=== PATIENT | male | born 1990 | race Caucasian/White ===

== ENCOUNTER 2019-11-27 11:34 | Emergency (ER) | payer OTHER ==
[2019-11-27 11:48] VITALS: BP 128/91; PULSE 57; RESP 18; TEMP 97.9
--- NOTE | 2019-11-27 12:15 | XR ---
EXAMINATION TYPE: XR knee complete RT DATE OF EXAM: 11/27/2019 COMPARISON: None HISTORY: Leg run over by machine TECHNIQUE: Three-view right knee FINDINGS: No acute fractures or dislocations are evident. Joint spaces are preserved. No joint effusi on is evident. Soft tissues are normal. Follow-up exams can be performed 7-10 days from acute trauma for continued pain. IMPRESSION: 1. Normal three-view right knee
--- NOTE | 2019-11-27 12:18 | XR ---
EXAMINATION TYPE: XR ankle complete RT DATE OF EXAM: 11/27/2019 COMPARISON: None HISTORY: Leg run over by machine TECHNIQUE: Three-view right ankle FINDINGS: Ankle mortise is intact. No acute displaced fractures are evident. Some minimal soft tissue swelling may be over the lateral malleolus. There is a tiny ossification lateral to the lateral mall eolus tiny avulsion could be considered IMPRESSION: 1. Tiny ossification lateral to the lateral malleolus could be a small avulsion. No additional areas suspicious for fracture are evident. 2. Follow-up studies can be performed 7-10 days from acute trauma for continued pain
[2019-11-27] MEDS ORDERED: HYDROmorphone 1 MG/ML 1 ML SYRINGE IM STA (12:35)
--- NOTE | 2019-11-27 13:09 | XR ---
EXAMINATION TYPE: XR femur RT DATE OF EXAM: 11/27/2019 COMPARISON: None HISTORY: Pain struck by current work TECHNIQUE: 2 view right femur FINDINGS: Femur appears intact. Femoral head articulates with the acetabulum. Knee joint space is sep arately visualized. IMPRESSION: 1. Normal 2 view right femur
--- NOTE | 2019-11-27 13:19 | ED ---
Lower Extremity Injury HPI - General Chief Complaint: Extremity Injury, Lower Stated Complaint: [facility] - foot/ankle injury Time Seen by Provider: 11/27/19 11:57 Source: patient, RN notes reviewed Mode of arrival: wheelchair Limitations: no limitations - History of Present Illness Initial Comments: 29-year-old male presents emergency Department chief complaint of right leg injury. Patient states he is working outside and was struck by a man left. Patient states that he has right leg pain is diffuse. Patient denies any paresthesias. Patient has small abrasion tetanus up-to-date. Patient offers no complaints. No head injury no loss conscious. - Related Data Previous Rx's Medication Instructions Recorded Ibuprofen [Motrin] 600 mg PO Q8HR PRN #20 tab 11/27/19 Allergies Allergy/AdvReac Type Severity Reaction Status Date / Time No Known Allergies Allergy Verified 11/27/19 11:47 Review of Systems ROS Statement: Those systems with pertinent positive or pertinent negative responses have been documented in the HPI. ROS Other: All systems not noted in ROS Statement are negative. Past Medical History Past Medical History: No Reported History History of Any Multi-Drug Resistant Organisms: None Reported Past Surgical History: Adenoidectomy, Tonsillectomy Past Psychological History: No Psychological Hx Reported Smoking Status: Current every day smoker Past Alcohol Use History: None Reported Past Drug Use History: None Reported General Exam Limitations: no limitations General appearance: alert, in no apparent distress Head exam: Present: atraumatic, normocephalic, normal inspection Eye exam: Present: normal appearance, PERRL, EOMI. Absent: scleral icterus, conjunctival injection, periorbital swelling ENT exam: Present: normal exam, normal oropharynx, mucous membranes moist Neck exam: Present: normal inspection. Absent: tenderness, meningismus, lymphadenopathy Respiratory exam: Present: normal lung sounds bilaterally. Absent: respiratory distress, wheezes, rales, rhonchi, stridor Cardiovascular Exam: Present: regular rate, normal rhythm, normal heart sounds. Absent: systolic murmur, diastolic murmur, rubs, gallop, clicks Extremities exam: Present: other (Right leg there is diffuse tenderness, greatest in the right calf, right lateral malleolar region. There is moderate swelling small abrasion noted patient is neurovascular intact patient does have full range of motion of all joints. Patient does report pain with range of motion.) Neurological exam: Present: alert, oriented X3 Skin exam: Present: warm, dry, intact, normal color. Absent: rash Course Vital Signs 11/27/19 11:42 Temperature 97.9 F Pulse Rate 57 L Respiratory 18 Rate Blood Pressure 128/91 O2 Sat by Pulse 100 Oximetry Procedures - Orthopedic Splinting/Casting Injury #1 Side: right Lower Extremity Injury Location: short leg, ankle Lower Extremity Immobilizer: posterior splint, synthetic pre-padded splint Additional Comments: Neurovascular intact before and after Medical Decision Making - Medical Decision Making 29-year-old male presented for right leg injury x-ray reviewed negative fracture negative proximal tib-fib, distal fibular fracture noted. Patient was splinted and will follow-up with orthopedics. Disposition Clinical Impression: Closed fracture of right distal fibula Disposition: HOME SELF-CARE Condition: Stable Instructions (If sedation given, give patient instructions): Ankle Fracture (ED) Additional Instructions: Please return to the Emergency Department if symptoms worsen or any other concerns. Prescriptions: Ibuprofen [Motrin] 600 mg PO Q8HR PRN #20 tab PRN Reason: Pain Is patient prescribed a controlled substance at d/c from ED?: No Referrals: None,Stated [Primary Care Provider] - 1-2 days Crow Blackmon DO [Doctor of Osteopathic Medicine] - 1-2 days Time of Disposition: 13:19
[2019-11-27] MEDS ORDERED: ACET/COD 300 MG/30 MG STARTER PACK 6 TAB BTL PO STA (13:21)
== END 2019-11-27 13:43 | disposition home or self-care (01) ==
LOC: EC 11:34
DX: S82.831A Other fracture of upper and lower end of right fibula, initial encounter for closed fracture (principal); F17.200 Nicotine dependence, unspecified, uncomplicated; W31.89XA Contact with other specified machinery, initial encounter; Y93.89 Activity, other specified; Y92.69 Other specified industrial and construction area as the place of occurrence of the external cause; Y99.0 Civilian activity done for income or pay
CPT/HCPCS: 73552; 73562; 73610; 99283; 29515; 96372; J1170

== ENCOUNTER → 2019-11-30 | Outpatient (CLI) | payer OTHER ==
--- NOTE | 2019-11-30 10:45 | US ---
EXAMINATION TYPE: US venous doppler duplex LE RT DATE OF EXAM: 11/30/2019 10:19 AM COMPARISON: NONE CLINICAL HISTORY: RLE -Phlebitis and Thrombophlebitis. Trauma to right leg 1 week ago, pain and swell ing SIDE PERFORMED: Right TECHNIQUE: The lower extremity deep venous system is examined utilizing real time linear array sonog wendie with graded compression, doppler sonography and color-flow sonography. VESSELS IMAGED: External Iliac Vein (EIV) Common Femoral Vein Deep Femoral Vein Greater Saphenous Vein * Femoral Vein Popliteal Vein Small Saphenous Vein * Proximal Calf Veins (* superficial vessels) Right Leg: Appears negative for DVT IMPRESSION: No evidence for DVT at this time.
== END | disposition home or self-care (01) ==
LOC: RADUSWWP 09:52
PROVIDERS: ATTEND Orthopaedic Surgery
DX: M79.661 Pain in right lower leg (principal); M25.571 Pain in right ankle and joints of right foot; M25.551 Pain in right hip

== ENCOUNTER → 2020-01-08 | Outpatient (CLI) | payer OTHER ==
--- NOTE | 2020-01-08 11:42 | XR ---
EXAMINATION TYPE: XR skull complete DATE OF EXAM: 01/08/2020 COMPARISON: NONE HISTORY: Rule out foreign body TECHNIQUE: 4 views of the bony calvarium are submitted FINDINGS: The osseous structures are intact. No evidence for fracture or bony lesion. No evidence for radiopaque foreign body. IMPRESSION: No radiopaque foreign body identified.
== END | disposition home or self-care (01) ==
LOC: RADXRMAIN 11:08
PROVIDERS: ATTEND Orthopaedic Surgery
DX: Z18.10 Retained metal fragments, unspecified (principal); Z98.890 Other specified postprocedural states
CPT/HCPCS: 70260

== ENCOUNTER 2021-08-21 08:28 | Emergency (ER) | payer BC ==
[2021-08-21 08:37] VITALS: RESP 20
[2021-08-21] MEDS ORDERED: SODIUM CHLORIDE 0.9% 1,000 ML IV STA (09:22)
--- NOTE | 2021-08-21 09:22 | XR ---
EXAMINATION TYPE: XR chest 2V DATE OF EXAM: 08/21/2021 COMPARISON: None INDICATION: Weakness chemical exposure TECHNIQUE: Frontal and lateral views of the chest are obtained. FINDINGS: The heart size is normal. The pulmonary vasculature is normal. The lungs are clear. IMPRESSION: 1. No acute pulmonary process.
[2021-08-21] MEDS ORDERED: KETOROLAC 15 MG/ML 1 ML VIAL IVP STA (09:24)
--- NOTE | 2021-08-21 09:30 | ED ---
General Adult HPI - General Chief complaint: Weakness Stated complaint: Bodyaches, poisioning, yard spray Time Seen by Provider: 08/21/21 09:15 Source: patient, family (), RN notes reviewed, old records reviewed Mode of arrival: ambulatory Limitations: no limitations - History of Present Illness Initial comments: 31-year-old well appearing male presents to the emergency room ambulatory with complaints of generalized body aches, joint pain, testicular pain, weakness and loss of appetite that started Wednesday. States was using fogging spray in the yard for bugs on Wednesday and is not sure if it is related. He denies any fevers, chest pain or difficulty in breathing. No nausea vomiting or diarrhea. He denies any medical history. No recent sick exposures. -: days(s) (5) Severity scale (1-10): 10 Quality: aching Consistency: constant Improves with: none Worsens with: movement Associated Symptoms: loss of appetite, malaise, weakness, other (Body and joint pain) - Related Data Previous Rx's Medication Instructions Recorded Ibuprofen [Motrin] 600 mg PO Q8HR PRN #20 tab 11/27/19 Allergies Allergy/AdvReac Type Severity Reaction Status Date / Time No Known Allergies Allergy Verified 08/21/21 08:36 Review of Systems ROS Statement: Those systems with pertinent positive or pertinent negative responses have been documented in the HPI. ROS Other: All systems not noted in ROS Statement are negative. Past Medical History Past Medical History: No Reported History History of Any Multi-Drug Resistant Organisms: None Reported Past Surgical History: Adenoidectomy, Ear Surgery, Orthopedic Surgery, Tonsillectomy Past Psychological History: No Psychological Hx Reported Smoking Status: Current every day smoker Past Alcohol Use History: None Reported Past Drug Use History: Marijuana General Exam Limitations: no limitations General appearance: alert, in no apparent distress Head exam: Present: atraumatic, normocephalic, normal inspection Eye exam: Present: normal appearance, PERRL, EOMI. Absent: scleral icterus, conjunctival injection, nystagmus, periorbital swelling, periorbital tenderness ENT exam: Present: normal exam, normal oropharynx, mucous membranes moist Expanded Mouth exam: Present: normal external inspection, tongue normal, tongue elevatio n. Absent: drooling, trismus, muffled voice Throat exam: normal inspection. negative: tonsillar erythema Neck exam: Present: normal inspection, full ROM. Absent: tenderness, meningismus, lymphadenopathy, thyromegaly Respiratory exam: Present: normal lung sounds bilaterally. Absent: respiratory distress, accessory muscle use Cardiovascular Exam: Present: regular rate GI/Abdominal exam: Present: soft. Absent: distended, tenderness exam: Present: vertical testicular lie, circumcision. Absent: testicular tenderness, urethral discharge, scrotal swelling Extremities exam: Present: normal inspection, full ROM, normal capillary refill. Absent: tenderness, pedal edema, joint swelling, calf tenderness Back exam: Present: normal inspection, full ROM. Absent: tenderness, CVA tenderness (R), CVA tenderness (L) Neurological exam: Present: alert, oriented X3, CN II-XII intact, normal gait Psychiatric exam: Present: normal affect, normal mood Skin exam: Present: warm, dry, intact, normal color. Absent: cyanosis, d iaphoretic, petechiae, pallor Course Vital Signs 08/21/21 08/21/21 08:33 12:42 Temperature 98.1 F 97.8 F Pulse Rate 95 75 Respiratory 20 20 Rate Blood Pressure 139/100 122/76 O2 Sat by Pulse 99 96 Oximetry Medical Decision Making - Medical Decision Making Patient presents with multiple complaints of body aches and generalized weakness after spraying the yard bugs on Wednesday. Patient states his symptoms started on Wednesday. He denies any fevers and no sick exposures. Vital signs are stable oxygen saturation is 99% on room air. CBC, electrolytes and urinalysis are unremarkable. Coronavirus test was negative. Chest x-ray shows no acute pulmonary process. On physical exam there is no abnormalities, testicles are unremarkable and nontender to palpation. Lungs sounds are clear to auscultation. No signs of dehydration. Patient was given 1 L of normal saline and 15 mg of Toradol. We did discuss that this is likely a viral illness and may take a couple of days to improve. Patient states that he is feeling better already. He was directed to return to the emergency room with any new or concerning symptoms and follow up with his primary care doctor next week. Case discussed with Dr. Toth. - Lab Data Result diagrams: 08/21/21 09:44 08/21/21 09:44 Lab Results 06/23/22 06/23/22 06/23/22 Range/Units 09:44 09:44 09:44 WBC 8.2 (3.8-10.6) k/uL RBC 5.67 (4.30-5.90) m/uL Hgb 16.5 (13.0-17.5) gm/dL Hct 49.4 (39.0-53.0) % MCV 87.2 (80.0-100.0) fL MCH 29.2 (25.0-35.0) pg MCHC 33.5 (31.0-37.0) g/dL RDW 12.5 (11.5-15.5) % Plt Count 256 (150-450) k/uL MPV 8.0 Neutrophils % 63 % Lymphocytes % 26 % Monocytes % 7 % Eosinophils % 2 % Basophils % 1 % Neutrophils # 5.2 (1.3-7.7) k/uL Lymphocytes # 2.1 (1.0-4.8) k/uL Monocytes # 0.5 (0-1.0) k/uL Eosinophils # 0.1 (0-0.7) k/uL Basophils # 0.1 (0-0.2) k/uL PT 10.2 (9.0-12.0) sec INR 0.9 (<1.2) APTT 27.3 (22.0-30.0) sec Sodium (137-145) mmol/L Potassium (3.5-5.1) mmol/L Chloride (98-107) mmol/L Carbon Dioxide (22-30) mmol/L Anion Gap mmol/L BUN (9-20) mg/dL Creatinine (0.66-1.25) mg/dL Est GFR (CKD-EPI)AfAm (>60 ml/min/1.73 sqM) Est GFR (CKD-EPI)NonAf (>60 ml/min/1.73 sqM) Glucose (74-99) mg/dL Plasma Lactic Acid Fuad (0.7-2.0) mmol/L Calcium (8.4-10.2) mg/dL Phosphorus (2.5-4.5) mg/dL Magnesium (1.6-2.3) mg/dL Total Bilirubin (0.2-1.3) mg/dL AST (17-59) U/L ALT (4-49) U/L Alkaline Phosphatase (38-126) U/L Total Protein (6.3-8.2) g/dL Albumin (3.5-5.0) g/dL Urine Color Yellow Urine Appearance Clear (Clear) Urine pH 5.5 (5.0-8.0) Ur Specific [place] 1.016 (1.001-1.035) Urine Protein Negative (Negative) Urine Glucose (UA) Negative (Negative) Urine Ketones Negative (Negative) Urine Blood Negative (Negative) Urine Nitrite Negative (Negative) Urine Bilirubin Negative (Negative) Urine Urobilinogen <2.0 (<2.0) mg/dL Ur Leukocyte Esterase Negative (Negative) Coronavirus (PCR) (Not Detectd) 08/21/21 08/21/21 08/21/21 Range/Units 09:44 09:44 09:48 WBC (3.8-10.6) k/uL RBC (4.30-5.90) m/uL Hgb (13.0-17.5) gm/dL Hct (39.0-53.0) % MCV (80.0-100.0) fL MCH (25.0-35.0) pg MCHC (31.0-37.0) g/dL RDW (11.5-15.5) % Plt Count (150-450) k/uL MPV Neutrophils % % Lymphocytes % % Monocytes % % Eosinophils % % Basophils % % Neutrophils # (1.3-7.7) k/uL Lymphocytes # (1.0-4.8) k/uL Monocytes # (0-1.0) k/uL Eosinophils # (0-0.7) k/uL Basophils # (0-0.2) k/uL PT (9.0-12.0) sec INR (<1.2) APTT (22.0-30.0) sec Sodium 138 (137-145) mmol/L Potassium 4.6 (3.5-5.1) mmol/L Chloride 105 (98-107) mmol/L Carbon Dioxide 22 (22-30) mmol/L Anion Gap 11 mmol/L BUN 15 (9-20) mg/dL Creatinine 0.85 (0.66-1.25) mg/dL Est GFR (CKD-EPI)AfAm >90 (>60 ml/min/1.73 sqM) Est GFR (CKD-EPI)NonAf >90 (>60 ml/min/1.73 sqM) Glucose 97 (74-99) mg/dL Plasma Lactic Acid Fuad 1.0 (0.7-2.0) mmol/L Calcium 9.1 (8.4-10.2) mg/dL Phosphorus 4.1 (2.5-4.5) mg/dL Magnesium 1.9 (1.6-2.3) mg/dL Total Bilirubin 0.3 (0.2-1.3) mg/dL AST 31 (17-59) U/L ALT 55 H (4-49) U/L Alkaline Phosphatase 79 (38-126) U/L Total Protein 7.4 (6.3-8.2) g/dL Albumin 4.5 (3.5-5.0) g/dL Urine Color Urine Appearance (Clear) Urine pH (5.0-8.0) Ur Specific [place] (1.001-1.035) Urine Protein (Negative) Urine Glucose (UA) (Negative) Urine Ketones (Negative) Urine Blood (Negative) Urine Nitrite (Negative) Urine Bilirubin (Negative) Urine Urobilinogen (<2.0) mg/dL Ur Leukocyte Esterase (Negative) Coronavirus (PCR) Not Detected (Not Detectd) Disposition Clinical Impression: Weakness Disposition: HOME SELF-CARE Condition: Good Instructions (If sedation given, give patient instructions): Weakness (ED) Additional Instructions: Today we completed a workup for body aches and generalized weakness. Sometimes we do not always find a cause for your symptoms in one ER visit. The findings on your exam today including blood work and chest x-ray are reassuring. At this time it is not 100% certain what is causing your symptoms however we feel you can be discharged from the emergency department. It is possible your symptoms may worsen or you may get better. Please follow-up with your primary care doctor next week. Return to the emergency room with any new or concerning symptoms. Increase your fluid intake and take Tylenol and or Motrin as needed for pain. Is patient prescribed a controlled substance at d/c from ED?: No Referrals: None,Stated [Primary Care Provider] - 1-2 days Peg Pink MD [REFERRING] - 1-2 days Time of Disposition: 12:25
[2021-08-21 10:20] LABS: Basophils # (A) 0.1 k/uL (0-0.2); Basophils % (A) 1 %; Eosinophils # (A) 0.1 k/uL (0-0.7); Eosinophils % (A) 2 %; HCT 49.4 % (39.0-53.0); HGB 16.5 gm/dL (13.0-17.5); Lymphocytes # (A) 2.1 k/uL (1.0-4.8); Lymphocytes % (A) 26 %; MCH 29.2 pg (25.0-35.0); MCHC 33.5 g/dL (31.0-37.0); MCV 87.2 fL (80.0-100.0); Monocytes # (A) 0.5 k/uL (0-1.0); Monocytes % (A) 7 %; Neutrophils # (A) 5.2 k/uL (1.3-7.7); Neutrophils % (A) 63 %; Platelet Count 256 k/uL (150-450); RBC 5.67 m/uL (4.30-5.90); RDW 12.5 % (11.5-15.5); WBC 8.2 k/uL (3.8-10.6)
[2021-08-21 10:23] LABS: Appearance,Urine Clear (Clear); Bilirubin,Urine Negative (Negative); Blood,Urine Negative (Negative); Color,Urine Yellow; Glucose,Urine (UA) Negative (Negative); Ketones,Urine Negative (Negative); Leukocyte Esterase,Urine Negative (Negative); Nitrite,Urine Negative (Negative); PH, Urine 5.5 (5.0-8.0); Protein,Urine Negative (Negative); Specific Gravity,Urine 1.016 (1.001-1.035); Urobilinogen,Urine <2.0 mg/dL (<2.0)
[2021-08-21 10:31] LABS: INR 0.9 (<1.2); Partial Thromboplastin Time 27.3 sec (22.0-30.0); Prothrombin Time 10.2 sec (9.0-12.0)
[2021-08-21 10:42] LABS: ALT 55 U/L (4-49); AST 31 U/L (17-59); African American GFR (CKD) >90 (>60 ml/min/1.73 sqM); Albumin 4.5 g/dL (3.5-5.0); Alkaline Phosphatase 79 U/L (38-126); Anion Gap 11 mmol/L; Blood Urea Nitrogen 15 mg/dL (9-20); Calcium 9.1 mg/dL (8.4-10.2); Carbon Dioxide 22 mmol/L (22-30); Chloride 105 mmol/L (98-107); Glucose 97 mg/dL (74-99); Magnesium 1.9 mg/dL (1.6-2.3); Non-African American GFR(CKD) >90 (>60 ml/min/1.73 sqM); Phosphorus 4.1 mg/dL (2.5-4.5); Potassium 4.6 mmol/L (3.5-5.1); Sodium 138 mmol/L (137-145); Total Bilirubin 0.3 mg/dL (0.2-1.3); Total Protein 7.4 g/dL (6.3-8.2)
[2021-08-21 12:43] VITALS: BP 122/76; PULSE 75; TEMP 97.8
== END 2021-08-21 12:43 | disposition home or self-care (01) ==
LOC: EC 08:28
DX: R53.1 Weakness (principal); F17.200 Nicotine dependence, unspecified, uncomplicated; Z20.822 Contact with and (suspected) exposure to COVID-19
CPT/HCPCS: 36415; 80053; 83605; 83735; 84100; 85025; 85610; 85730; 81003; 87635; 71046; 99285; 96374; 96361; J1885